=== PATIENT | female | born 1940 | race Two or more races ===

== ENCOUNTER 2023-08-06 18:05 | Emergency (ER) | payer OTHER ==
[~2023-08-06] VITALS: Ht 149.9 cm; Wt 43.1 kg
[2023-08-06] MEDS ORDERED: MEPERIDINE HCL/PF 25 MG/ML VIAL IM STA (19:56)
[2023-08-06] MEDS ORDERED: KETOROLAC TROMETHAMINE 30 MG VIAL IV STA (19:56)
[2023-08-06] MEDS ORDERED: PROMETHAZINE HCL 25 MG/ML AMPUL IM STA (19:57)
[2023-08-06 21:39] LABS: HEMATOCRIT 36.2 % (36.0-45.00); HEMOGLOBIN 12.3 g/dL (12.0-15.00); MEAN CELL VOLUME 87.2 fL (80.00-100.00); MEAN CORPUSCULAR HEMOGLOBIN 29.7 pg (27.00-32.0); MEAN CORPUSCULAR HGB CONC 34.1 g/dl (32.0-36.0); PLATELET COUNT 266 K/uL (150-450); RED BLOOD COUNT 4.15 M/uL (4.00-6.00); RED CELL DISTRIBUTION WIDTH 12.7 % (11.5-14.5)
[2023-08-06 21:57] LABS: BILIRUBIN TOTAL 0.68 mg/dL (0.3-1.2); CALCIUM 9.1 mg/dL (8.5-10.1); CREATININE SERUM 1.08 mg/dL (0.55-1.02); GFR 48.45; GLOBULINA 3.1 G/DL (2.4-3.5); POTASSIUM 3.93 mEq/L (3.5-5.1); TOTAL PROTEIN 7.1 gm/dL (6.4-8.2)
[2023-08-06 22:04] LABS: INR 1.03; PARTIAL THROMBOPLASTIN TIME 25.5 SECONDS (22.0-34.0); PROTHROMBIN TIME 10.8 SECONDS (9.0-11.5)
== END 2023-08-06 23:02 | disposition home or self-care (01) ==
LOC: ER 18:05
DX: S70.01XA Contusion of right hip, initial encounter (principal); W10.8XXA Fall (on) (from) other stairs and steps, initial encounter; Y93.9 Activity, unspecified; Y92.018 Other place in single-family (private) house as the place of occurrence of the external cause; Z88.0 Allergy status to penicillin; Z88.8 Allergy status to other drugs, medicaments and biological substances; Z91.018 Allergy to other foods
CPT/HCPCS: 36415; 72100; 73503; 73551; 96365; 96372 ×2; 99284; J1885; J2175; J2550